=== PATIENT | male | born 1980 | race Two or more races ===

== ENCOUNTER 2017-04-20 20:44 | Emergency (ER) | payer SELFPAY ==
[~2017-04-20] VITALS: Ht 175.3 cm; Wt 127.0 kg
[2017-04-20 20:55] VITALS: BP 169/112
[2017-04-20] MEDS ORDERED: AMOX500C PO (21:17)
--- NOTE | 2017-04-20 21:17 | PHYS DOC ---
Past Medical History Past Medical History: No Pertinent History Past Surgical History: No Surgical History Alcohol Use: Occasionally Drug Use: None Adult General Chief Complaint Chief Complaint: SORE THROAT HPI HPI Patient is a 36 year old male presents emergency department with a sore throat that started today. He states that he is having pain and discomfort from the ear down into the neck area. He states that he has been using some cough drops, halls, with no relief. He denies fever, chills or any nausea or vomiting. Patient denies any cough or congestion. Family at bedside states that he started amoxicillin today and some old prescription that they had had in the past. Review of Systems Review of Systems Constitutional: Denies fever or chills [] Eyes: Denies change in visual acuity, redness, or eye pain [] HENT: Denies nasal congestion complaint of sore throat [] Respiratory: Denies cough or shortness of breath [] Cardiovascular: No additional information not addressed in HPI [] GI: Denies abdominal pain, nausea, vomiting, bloody stools or diarrhea [] : Denies dysuria or hematuria [] Musculoskeletal: Denies back pain or joint pain [] Integument: Denies rash or skin lesions [] Neurologic: Denies headache, focal weakness or sensory changes [] Endocrine: Denies polyuria or polydipsia [] Allergies Allergies Allergies Coded Allergies Type Severity Reaction Last Updated Verified No Known Drug Allergies 04/20/17 No Physical Exam Physical Exam Constitutional: Well developed, well nourished, no acute distress, non-toxic appearance. [] HENT: Normocephalic, atraumatic, bilateral external ears normal, oropharynx moist, no oral exudates, nose normal. Bilateral tympanic membranes appear to be normal. Throat with no erythematous, redness noted no uvula deviation no exudate noted.Anterior cervical adenopathy noted. No frontal or maxillary sinus tenderness noted Eyes: PERRLA, EOMI, conjunctiva normal, no discharge. [] Neck: Normal range of motion, no tenderness, supple, no stridor. [] Cardiovascular:Heart rate regular rhythm, no murmur [] Lungs & Thorax: Bilateral breath sounds clear to auscultation [] Skin: Warm, dry, no erythema, no rash. [] Back: No tenderness Extremities: No tenderness, no cyanosis, no clubbing, ROM intact, no edema. [] Neurologic: Alert and oriented X 3, normal motor function, normal sensory function, no focal deficits noted. [] Psychologic: Affect normal, judgement normal, mood normal. [] Current Patient Data Vital Signs Vital Signs Date Time Temp Pulse Resp B/P (MAP) Pulse Ox O2 Delivery O2 Flow Rate FiO2 04/20/17 20:55 98.5 105 16 97 Room Air 98.5 EKG EKG [] Radiology/Procedures Radiology/Procedures [] Course & Med Decision Making Course & Med Decision Making Pertinent Labs and Imaging studies reviewed. (See chart for details) Rapid strep was negative however the throat does appear to be very red and irritated. Patient's blood pressure was elevated as well he was encouraged to monitor his blood pressure follow-up with his primary care physician as he denies shortness of air difficulty breathing chest pain or chest discomfort, he denies any headaches blurred vision or any tinnitus. Patient was also encouraged to use Benadryl to help with nasal drainage. Patient was encouraged drink any of fluids such as water Gatorade or propel. Patient was also recommended to use Tylenol or ibuprofen for pain and discomfort. He'll be provided amoxicillin as been as mentioned. Signs and symptoms to return back to the emergency department has been provided. [] Dragon Disclaimer Dragon Disclaimer This electronic medical record was generated, in whole or in part, using a voice recognition dictation system. Departure Departure Impression: Primary Impression: Pharyngitis Disposition: 01 HOME, SELF-CARE Condition: STABLE Referrals: NO PCP (PCP) Patient Instructions: Viral and Bacterial Pharyngitis, [id number] Additional Instructions: Your rapid strep was negative here in the emergency department. However a culture will be obtained for your throat discomfort. Tylenol or ibuprofen for pain and discomfort. Medication as prescribed. Cough drops throat lozenges warm salt water mouth rinses and gargles will also help with the sore throat and discomfort. You may also try Benadryl every 6 hours to help with nasal drainage and discharge this medication will cause drowsiness do not take if you need to be alert and oriented. Monitor your blood pressure follow-up with your primary care physician in the next 3-5 days. Return back to emergency prior signs and symptoms of become worse. Scripts Amoxicillin (AMOXICILLIN) 500 Mg Capsule 1 CAP PO BID, #20 CAP Prov: CHELE GOOD APRN 04/20/17 CHELE GOOD APRN Apr 20, 2017 21:17
[2017-04-21 06:30] LABS: NEGATIVE OBC STREP NEG; POSITIVE OBC STREP POS
== END 2017-04-20 21:27 | disposition home or self-care (01) ==
LOC: ER 20:44
DX: J02.9 Acute pharyngitis, unspecified (principal)
CPT/HCPCS: 87070; 87880; 99284